=== PATIENT | male | born 1960 | race Caucasian/White ===

== ENCOUNTER 2023-09-10 07:54 | Emergency (ER) | payer SELFPAY ==
[~2023-09-10] VITALS: Ht 177.8 cm; Wt 114.0 kg
[2023-09-10 08:02] VITALS: O2SAT 94
[2023-09-10] MEDS: HYDROMORPHONE HCL/PF 2MG/ML CPJ IM PRN (09:06)
[2023-09-10] MEDS: DIAZEPAM 5 MG/ML 2ML SYR IM ONE (09:06)
[2023-09-10] MEDS ORDERED: OXYC-100 MT (11:24)
[2023-09-10] MEDS ORDERED: DIAZ-570 MT (11:24)
[2023-09-10 11:35] VITALS: BP 147/85; PULSE 79; RESP 18; TEMP 97.9
== END 2023-09-10 11:37 | disposition home or self-care (01) ==
LOC: ER 08:43
DX: M54.2 Cervicalgia (principal)
CPT/HCPCS: 96372; 99284; J3360; Z7610